=== PATIENT | male | born 1975 | race Caucasian/White ===

== ENCOUNTER 2017-07-20 21:23 | Emergency (ER) | payer OTHER ==
[2017-07-20 21:38] VITALS: BP 129/99; PULSE 91; TEMP 98.3; BMI 34.4
--- NOTE | 2017-07-20 22:05 | PDOC ---
History of Present Illness - General Chief Complaint: Chest Pain Stated Complaint: CHEST PAIN Time Seen by Provider: 07/20/17 21:59 - History of Present Illness Initial Comments: 07/20/17 22:46 The patient is a 41 year old male with a history of HLD, HTN who presents for evaluation of chest pressure. The patient reports a 3 day history of central chest pressure with radiation into his neck. He reports some occasional associated SOB as well. He states that the pain improves with movement and exercise and notes that he has been jogging several times over the past 3 days. However, he was concerned about his heart due to his uncle and grandfather passing from heart attacks which prompted his presentation to the ED today. He denies fevers, chills, nausea, vomiting, abdominal pain, or changes with urination or bowel movements. Past History - Past Medical History Allergies/Adverse Reactions: Allergies Allergy/AdvReac Type Severity Reaction Status Date / Time No Known Allergies Allergy Verified 05/30/14 15:42 Home Medications: Ambulatory Orders Aspirin [ASA -] 243 mg PO DAILY 07/20/17 Anemia: No Asthma: No Cancer: No Cardiac Disorders: No CVA: No COPD: No CHF: No Dementia: No Diabetes: No GI Disorders: No Disorders: No HTN: No Hypercholesterolemia: Yes Liver Disease: No Seizures: No Thyroid Disease: No - Surgical History Abdominal Surgery: No Appendectomy: Yes Cardiac Surgery: No Cholecystectomy: No Lung Surgery: No Neurologic Surgery: No Orthopedic Surgery: Yes (CARPLE TUNNEL BILATERAL) - Suicide/Smoking/Psychosocial Hx Smoking Status: No Smoking History: Never smoked Number of Cigarettes Smoked Daily: 0 Information on smoking cessation initiated: No Hx Alcohol Use: Yes (socially) Drug/Substance Use Hx: No Substance Use Type: Alcohol Hx Substance Use Treatment: No Review of Systems - Review of Systems Comments:: 07/20/17 22:50 Constitutional: No fevers, chills, fatigue, malaise HEENT: No Rhinorrhea, nasal congestion, Cardiovascular: Chest pain. No syncope, palpitations, lightheadedness Respiratory: SOB. No Cough, Hemoptysis, Gastrointestinal: No Abdominal pain, Nausea, Vomiting, Constipation, Diarrhea, Melena Genitourinary: No Dysuria, Frequency, Urgency, Hesitancy, Hematuria, Flank pain Musculoskeletal: No Myalgia, arthralgia Skin: No rashes, bruising, pallor Neurologic: No Headache, Dizziness, Numbness, Weakness, or Tingling Psychiatric: No Hallucinations. No SI or HI *Physical Exam - Vital Signs Last Vital Signs Temp Pulse Resp BP Pulse Ox 98.3 F 91 H 20 129/99 99 07/20/17 21:35 07/20/17 21:35 07/20/17 21:35 07/20/17 21:35 07/20/17 21:35 - Physical Exam Comments: 07/20/17 22:50 General Appearance: Nourished. No Apparent Distress HEENT: EOMI, LEANNA. No Pharyngeal Erythema, Tonsillar Exudate, Tonsillar Erythema Neck: No Cervical Lymphadenopathy Respiratory/Chest: Lungs Clear, Normal Breath Sounds. No Crackles, Rales, Rhonchi, Wheezing Cardiovascular: Regular Rhythm, Regular Rate. No Murmur, Gallops, Rubs Gastrointestinal/Abdominal: Normal Bowel Sounds, Soft. No Guarding, Rebound, Tenderness Musculoskeletal: No CVA Tenderness Extremity: Normal Capillary Refill Integumentary: Normal Color, Dry, Warm Neurologic: Fully Oriented, Alert, Normal Mood/Affect, Normal Response, ED Treatment Course - LABORATORY CBC & Chemistry Diagram: 07/20/17 22:47 07/20/17 22:47 Medical Decision Making - Medical Decision Making 07/20/17 22:51 The patient is a 41 year old male with a history of HLD, HTN who presents for evaluation of chest pressure. Differential includes but is not limited to: acs , musculoskeletal, pnuemonia, metabolic derangement. Given the patient's history of chest pressure improving with exercise, it is likely his symptoms are musculoskeletal in nature. However, given his family history of [place], we will obtain a cbc, cmp, troponin, ekg and chest plain film to evaluate for other etiologies. We will continue to monitor and reassess. 07/20/17 23:27 CBC, cmp, troponin are unremarkable. EKG is unremarkable. Chest plain film is unremarkable as preliminarily read by ER physician pending official radiology read. We are comfortable discharging the patient home at this time with primary care provider follow up. We discussed the results and the plan with the patient who voiced understanding and is agreeable with the plan. *DC/Admit/Observation/Transfer Diagnosis at time of Disposition: Atypical chest pain - Discharge Dispostion Disposition: HOME Condition at time of disposition: Improved Admit: No - Referrals Referrals: Vitaliy Young MD [Primary Care Provider] - - Patient Instructions Printed Discharge Instructions: DI for Gastroesophageal Reflux Disease (GERD), DI for Atypical Chest Pain Additional Instructions: Please return to the ER if you experience concerning or worsening symptoms including worsening pain, difficulty breathing, fevers or vomiting. You were seen in the ER for chest pain. Your lab results and xray were normal here in the ER. Your symptoms are likely due to musculoskeletal strain. You may use ibuprofen as needed at home to help manage your symptoms. It is also possible that your symptoms are due to Reflux. We have provided some information on reflux that you should discuss with your primary care provider. Please call to schedule an appointment with your primary care provider to discuss your ER visit and further management of your symptoms. - Post Discharge Activity
[2017-07-20 22:58] LABS: BASOPHIL 0.5 % (0-2.0); EOSINOPHIL 1.6 % (0-4.5); MCH 30.1 pg (25.7-33.7); MCHC 34.7 g/dl (32.0-35.9); MEAN CELL VOLUME 86.9 fl (80-96); NEUTROPHILS 60.8 % (42.8-82.8); PLATELET COUNT 227 K/MM3 (134-434); RDW 12.8 % (11.9-15.9); WHITE BLOOD COUNT 8.8 K/mm3 (4.0-10.0)
[2017-07-20 23:19] LABS: ANION GAP 10 (8-16); BILIRUBIN,TOTAL 0.5 mg/dL (0.2-1.0); CALCIUM 8.7 mg/dL (8.5-10.1); CO2 25 mmol/L (21-32); CREATININE 0.9 mg/dL (0.7-1.3); GLUCOSE,RANDOM 95 mg/dL (74-106); SGOT/AST 12 U/L (15-37); SGPT/ALT 31 U/L (12-78); TOT PROT 7.2 g/dl (6.4-8.2)
[2017-07-20 23:21] LABS: ALK PHOS 84 U/L (45-117); CPK 298 IU/L (39-308); TROPONIN I < 0.02 ng/ml (0.00-0.05)
--- NOTE | 2017-07-20 23:31 | PDOC ---
Attending Attestation - Resident Resident Name: Td Magallon - ED Attending Attestation I have performed the following: I have examined & evaluated the patient, The case was reviewed & discussed with the resident, I agree w/resident's findings & plan - HPI HPI: 07/20/17 23:29 Pt comes with chest tightness; worried that it is cardiac, as his dad and grandpa had CAD; pt has been eating more veggies and changed hios diet as he has borderline BP high and his presentation today may be GERD/gastritis related. EKG NSR - Physicial Exam PE: 07/20/17 23:30 Agree with resident exam. HEART lungs normal. Pt is not diaphoretic. - Medical Decision Making 07/20/17 23:31 Labs normal; CXR normal. Pt will be discharged with PMD followup.
--- NOTE | 2017-07-21 12:42 | EKG ---
Test Reason : Blood Pressure : / mmHG Vent. Rate : 075 BPM Atrial Rate : 075 BPM P-R Int : 192 ms QRS Dur : 084 ms QT Int : 370 ms P-R-T Axes : 058 018 031 degrees QTc Int : 413 ms NORMAL SINUS RHYTHM NORMAL ECG NO PREVIOUS ECGS AVAILABLE REPEAT EKG IF CLINICALLY INDICATED Confirmed by SANTIAGO BATEMAN MD ([id number]) on 07/21/2017 12:42:11 PM Referred By: Confirmed By:SANTIAGO BATEMAN MD
== END 2017-07-20 23:59 | disposition home or self-care (01) ==
LOC: JER 21:23
DX: R07.89 Other chest pain (principal); I10 Essential (primary) hypertension; E78.00 Pure hypercholesterolemia, unspecified
CPT/HCPCS: 36415; 71020-TC; 80053; 82550; 82553; 84484; 85025; 93005; 93010; 99283-25